=== PATIENT | male | born 1995 | race Caucasian/White ===

== ENCOUNTER 2019-09-13 07:07 | Emergency (ER) | payer OTHER ==
--- NOTE | 2019-09-13 07:28 | EDM.PDOC ---
ED HPI GENERAL MEDICAL PROBLEM - General Chief Complaint: General Stated Complaint: TOOTH PAIN Time Seen by Provider: 09/13/19 07:20 Source of Information: Reports: Patient History Limitations: Reports: No Limitations - History of Present Illness INITIAL COMMENTS - FREE TEXT/NARRATIVE: This is a 24-year-old male who presents the emergency room with a chief complaint of tooth pain. Patient states his tooth. The patient states the pain is been going for day and a half. Patient denies chills and fever. Patient is allergic to amoxicillin. Has no other problems. Onset: Today Duration: Day(s):, Getting Worse Severity: Mild Improves with: Reports: None Worsens with: Reports: None Associated Symptoms: Reports: No Other Symptoms Right tooth Pain Score (Numeric/FACES): 10 - Related Data Allergies Allergy/AdvReac Type Severity Reaction Status Date / Time amoxicillin Allergy Hives Verified 09/13/19 07:24 Home Meds: Home Meds Doxycycline [Vibramycin] 100 mg PO BID #14 cap 09/13/19 [Rx] Ibuprofen [Motrin] 600 mg PO Q8H PRN #21 tab 09/13/19 [Rx] ED ROS GENERAL - Review of Systems Review Of Systems: See Below Constitutional: Reports: No Symptoms HEENT: Reports: No Symptoms, Other (Pain in tooth ) Respiratory: Reports: No Symptoms Cardiovascular: Reports: No Symptoms Endocrine: Reports: No Symptoms GI/Abdominal: Reports: No Symptoms : Reports: No Symptoms Skin: Reports: No Symptoms Neurological: Reports: No Symptoms Psychiatric: Reports: No Symptoms Hematologic/Lymphatic: Reports: No Symptoms Immunologic: Reports: No Symptoms ED EXAM, GENERAL - Physical Exam Exam: See Below Exam Limited By: Altered Mental Status General Appearance: Alert, WD/WN, No Apparent Distress Eye Exam: Bilateral Eye: Normal Fundi, Normal Inspection Ears: Normal External Exam, Normal Canal, Normal TMs Ear Exam: Bilateral Ear: Auricle Normal, Canal Normal Nose: Normal Inspection, Normal Mucosa Throat/Mouth: Normal Inspection, Normal Lips. No: Normal Teeth (6. Tooth number is infected) Head: Atraumatic, Normocephalic Neck: Normal Inspection Respiratory/Chest: No Respiratory Distress Cardiovascular: Normal Peripheral Pulses, Regular Rate, Rhythm GI/Abdominal: Normal Bowel Sounds, Soft, No Organomegaly, No Distention (Male) Exam: Deferred Rectal (Males) Exam: Deferred Back Exam: Normal Inspection, Full Range of Motion Extremities: Normal Inspection, Normal Range of Motion Neurological: Alert, Oriented, CN II-XII Intact Psychiatric: Normal Affect, Normal Mood Skin Exam: Warm, Dry, Intact Lymphatic: No Adenopathy Course - Vital Signs Text/Narrative:: This 24-year-old male presents to the emergency room with a chief complaint of right upper tooth pain. Patient states his pain been hurting for multiple days. Exam #6 tooth is painful no evidence of severe abscess. Patient will be placed on antibiotics and pain medicine. Anti-inflammatories patient instructed to follow-up with a dentist. Use Auralgan for pain also Last Recorded V/S: Last Vital Signs Temp 97.4 F 09/13/19 07:24 Pulse 112 H 09/13/19 07:24 Resp 18 09/13/19 07:24 BP 122/86 09/13/19 07:24 Pulse Ox 97 09/13/19 07:24 - Orders/Labs/Meds Meds: Medications Discontinued Medications Generic Name Dose Route Start Last Admin Trade Name Freq PRN Reason Stop Dose Admin Doxycycline Hyclate 200 mg 09/13/19 07:47 Vibramycin PO 09/13/19 07:48 ONETIME ONE Ibuprofen 600 mg 09/13/19 07:49 Motrin PO 09/13/19 07:50 ONETIME ONE Departure - Departure Time of Disposition: 07:54 Disposition: DC/Tfer to Hospice - Home 50 Condition: Good Clinical Impression: Dental infection - Discharge Information Prescriptions: Doxycycline [Vibramycin] 100 mg PO BID #14 cap Ibuprofen [Motrin] 600 mg PO Q8H PRN #21 tab PRN Reason: Pain (Mild 1-3) Referrals: PCP,None [Primary Care Provider] - Forms: ED Department Discharge Additional Instructions: Patient needs to follow-up with dentist. Use Auralgan topical oral solution for pain found most pharmacies Take your medication as prescribed. Sepsis Event Note - Focused Exam Vital Signs: Vital Signs Temp Pulse Resp BP Pulse Ox 09/13/19 07:24 97.4 F 112 H 18 122/86 97 Date Exam was Performed: 09/13/19 Time Exam was Performed: 07:54
[2019-09-13] MEDS ORDERED: Doxycycline 100 MG Cap PO ONE (07:47)
[2019-09-13] MEDS ORDERED: Ibuprofen 600 MG Tab PO ONE (07:49)
[2019-09-13] MEDS ORDERED: Lidocaine 2% Viscous Solution 15 ML Cup PO ONE (07:53)
[2019-09-13] MEDS ORDERED: Benzocaine 20% Topical Spray UD MUCMEM ONE (07:53)
== END 2019-09-13 08:09 | disposition home or self-care (01) ==
LOC: MW.ED 07:07
DX: K04.7 Periapical abscess without sinus (principal); Z88.1 Allergy status to other antibiotic agents
CPT/HCPCS: 99282; A9270

== ENCOUNTER 2019-11-22 04:31 | Emergency (ER) | payer SELFPAY ==
[2019-11-22] MEDS ORDERED: Sodium Chloride 0.9% 1,000 ML IV ONE (04:40)
[2019-11-22] MEDS ORDERED: Bacitracin Oint 1 GM U/D Packet TOP ONE (04:41)
--- NOTE | 2019-11-22 04:45 | EDM.PDOC ---
ED HPI GENERAL MEDICAL PROBLEM - General Stated Complaint: SEIZURE Time Seen by Provider: 11/22/19 04:38 - History of Present Illness INITIAL COMMENTS - FREE TEXT/NARRATIVE: History of present illness: [Patient presents with alcohol intoxication patient was drinking tonight and became very intoxicated however he also had a witnessed seizure according to the people who called 911. EMS arrived and found him postictal and intoxicated. He also somehow injured his wrist and has a 1 cm superficial laceration there. This was not apparently intentional. He has no prior history of seizures. Patient apparently struck his head after the seizure but not prior he is now arousable but slurring his words and appears to be severely intoxicated. He denies any other medical problems] Review of systems: As per history of present illness and below otherwise all systems reviewed and negative. Past medical history: As per history of present illness and as reviewed below otherwise noncontributory. Surgical history: As per history of present illness and as reviewed below otherwise noncontributory. Social history: No reported history of drug or alcohol abuse. Family history: As per history of present illness and as reviewed below otherwise noncontributory. Physical exam: HEENT: Atraumatic, normocephalic, pupils reactive, negative for conjunctival pallor or scleral icterus, mucous membranes moist, throat clear, neck supple, nontender, trachea midline. Lungs: Clear to auscultation, breath sounds equal bilaterally, chest nontender. Heart: S1S2, regular, negative for clicks, rubs, or JVD. Abdomen: Soft, nondistended, nontender. Negative for masses or hepatosplenomegaly. Negative for costovertebral tenderness. Pelvis: Stable nontender. Genitourinary: Deferred. Rectal: Deferred. Extremities: Atraumatic, negative for cords or calf pain. Neurovascular unremarkable. There are small 1 cm lacerations to both the left wrists and right palm that are superficial and bleeding is controlled Neuro: Awake, alert, intoxicated. Cranial nerves II through XII unremarkable. Cerebellum unremarkable. Motor and sensory unremarkable throughout. Exam nonfocal. Diagnostics: [] Therapeutics: [] Impression: Alcohol intoxication, seizure. [] Plan: I will obtain a CBC chemistry alcohol level and a CT of the brain due to the seizure that occurred that is supposedly a new onset seizure. [] Definitive disposition and diagnosis as appropriate pending reevaluation and review of above. - Related Data Allergies Allergy/AdvReac Type Severity Reaction Status Date / Time amoxicillin Allergy Hives Verified 11/22/19 04:58 Home Meds: Home Meds . [No Known Home Meds] 11/22/19 [History] Past Medical History HEENT History: Reports: None Cardiovascular History: Reports: None Respiratory History: Reports: None Gastrointestinal History: Reports: None Genitourinary History: Reports: None Musculoskeletal History: Reports: None Neurological History: Reports: None Psychiatric History: Reports: None Endocrine/Metabolic History: Reports: None Hematologic History: Reports: None Immunologic History: Reports: None Oncologic (Cancer) History: Reports: None Dermatologic History: Reports: None - Infectious Disease History Infectious Disease History: Reports: None - Past Surgical History Head Surgeries/Procedures: Reports: None HEENT Surgical History: Reports: None Cardiovascular Surgical History: Reports: None Respiratory Surgical History: Reports: None GI Surgical History: Reports: None Male Surgical History: Reports: None Endocrine Surgical History: Reports: None Neurological Surgical History: Reports: None Musculoskeletal Surgical History: Reports: Other (See Below) Oncologic Surgical History: Reports: None Dermatological Surgical History: Reports: None Social & Family History - Family History Family Medical History: Noncontributory - Caffeine Use Caffeine Use: Reports: Energy Drinks ED ROS GENERAL - Review of Systems Review Of Systems: See Below ED EXAM, GENERAL - Physical Exam Exam: See Below EKG INTERPRETATION EKG Interpretation Comments: EKG is a normal sinus rhythm rate of 101 bpm sinus tachycardia normal EKG otherwise no ischemia normal axis read and interpreted by me Course - Vital Signs Text/Narrative:: Your: Lack repair a 1.5 cm laceration to the left wrist was anesthetized with 10 mils of 1% lidocaine it was explored visually and digitally no foreign bodies were noted no tendon injury was noted it was then closed with 4 4-0 simple interrupted sutures nylon no complications tolerated well CT brain is negative for any acute abnormalities read by radiology. Discharge home with a sober ride seizure precautions follow-up with neurology and primary care Last Recorded V/S: Last Vital Signs Temp 36.7 C 11/22/19 04:52 Pulse 87 11/22/19 05:55 Resp 16 11/22/19 05:55 BP 144/66 H 11/22/19 05:55 Pulse Ox 95 11/22/19 05:55 - Orders/Labs/Meds Orders: Active Orders 24 hr Category Date Time Status EKG Documentation Completion [RC] STAT Care 11/22/19 04:39 Active Labs: Laboratory Tests 11/22/19 11/22/19 11/22/19 Range/Units 04:40 04:40 04:40 WBC 6.89 (4.0-11.0) K/uL RBC 4.71 (4.50-5.90) M/uL Hgb 14.4 (13.0-17.0) g/dL Hct 41.2 (38.0-50.0) % MCV 87.5 (80.0-98.0) fL MCH 30.6 (27.0-32.0) pg MCHC 35.0 (31.0-37.0) g/dL RDW Std Deviation 40.7 (28.0-62.0) fl RDW Coeff of Janny 13 (11.0-15.0) % Plt Count 259 (150-400) K/uL MPV 11.70 (7.40-12.00) fL Neut % (Auto) 59.4 (48.0-80.0) % Lymph % (Auto) 29.8 (16.0-40.0) % [place] % (Auto) 9.0 (0.0-15.0) % Eos % (Auto) 1.2 (0.0-7.0) % Baso % (Auto) 0.6 (0.0-1.5) % Neut # (Auto) 4.1 (1.4-5.7) K/uL Lymph # (Auto) 2.1 (0.6-2.4) K/uL [place] # (Auto) 0.6 (0.0-0.8) K/uL Eos # (Auto) 0.1 (0.0-0.7) K/uL Baso # (Auto) 0.0 (0.0-0.1) K/uL Nucleated RBC % 0.0 /100WBC Nucleated RBCs # 0 K/uL Sodium 146 (136-148) mmol/L Potassium 3.8 (3.5-5.1) mmol/L Chloride 110 H (98-107) mmol/L Carbon Dioxide 20.6 L (21.0-32.0) mmol/L BUN 7 (7.0-18.0) mg/dL Creatinine 1.2 (0.8-1.3) mg/dL Est Cr Clr Drug Dosing 99.70 mL/min Estimated GFR (MDRD) > 60.0 ml/min Glucose 97 (74-106) mg/dL Calcium 8.1 L (8.5-10.1) mg/dL Total Bilirubin 0.5 (0.2-1.0) mg/dL AST 34 (15-37) IU/L ALT 32 (14-63) IU/L Alkaline Phosphatase 62 (46-116) U/L Total Protein 6.6 (6.4-8.2) g/dL Albumin 4.0 (3.4-5.0) g/dL Globulin 2.6 (2.6-4.0) g/dL Albumin/Globulin Ratio 1.5 (0.9-1.6) Urine Opiates Screen NEGATIVE (NEGATIVE) Ur Oxycodone Screen NEGATIVE (NEGATIVE) Urine Methadone Screen NEGATIVE (NEGATIVE) Ur Barbiturates Screen NEGATIVE (NEGATIVE) Ur Phencyclidine Scrn NEGATIVE (NEGATIVE) Ur Amphetamine Screen NEGATIVE (NEGATIVE) U Methamphetamines Scrn NEGATIVE (NEGATIVE) U Benzodiazepines Scrn NEGATIVE (NEGATIVE) U Cocaine Metab Screen NEGATIVE (NEGATIVE) U Marijuana (THC) Screen NEGATIVE (NEGATIVE) Ethyl Alcohol 228 mg/dL Meds: Medications Discontinued Medications Generic Name Dose Route Start Last Admin Trade Name Freq PRN Reason Stop Dose Admin Bacitracin 1 dose 11/22/19 04:41 11/22/19 05:07 Bacitracin Oint 1 Gm TOP 11/22/19 04:42 1 dose ONETIME ONE Administration Sodium Chloride 1,000 mls @ 999 mls/hr 11/22/19 04:40 11/22/19 05:04 Normal Saline IV 11/22/19 05:40 999 mls/hr .Bolus ONE Administration Lidocaine HCl 10 ml 11/22/19 04:58 11/22/19 05:07 Xylocaine-Mpf 1% INJECT 11/22/19 04:59 10 ml ONETIME ONE Administration Departure - Departure Time of Disposition: 06:33 Disposition: Home, Self-Care 01 Condition: Good Clinical Impression: Alcoholic intoxication, Seizure - Discharge Information *PRESCRIPTION DRUG MONITORING PROGRAM REVIEWED*: Not Applicable *COPY OF PRESCRIPTION DRUG MONITORING REPORT IN PATIENT JACE: Not Applicable Instructions: Binge-Drinking Information, Adult, Seizure, Adult, [id number] Referrals: PCP,None [Primary Care Provider] - Additional Instructions: The following information is given to patients seen in the emergency department who are being discharged to home. This information is to outline your options for follow-up care. We provide all patients seen in our emergency department with a follow-up referral. The need for follow-up, as well as the timing and circumstances, are variable depending upon the specifics of your emergency department visit. If you don't have a primary care physician on staff, we will provide you with a referral. We always advise you to contact your personal physician following an emergency department visit to inform them of the circumstance of the visit and for follow-up with them and/or the need for any referrals to a consulting specialist. The emergency department will also refer you to a specialist when appropriate. This referral assures that you have the opportunity for follow-up care with a specialist. All of these measure are taken in an effort to provide you with optimal care, which includes your follow-up. Under all circumstances we always encourage you to contact your private physician who remains a resource for coordinating your care. When calling for follow-up care, please make the office aware that this follow-up is from your recent emergency room visit. If for any reason you are refused follow-up, please contact the [facility] Emergency Department at and asked to speak to the emergency department charge nurse. [facility] - Primary Care [address] [place] [id number] [id number] [facility] - Neurology Professional Building [address] [place] [address], [address] [place] [address] Sepsis Event Note - Focused Exam Vital Signs: Vital Signs Temp Pulse Resp BP Pulse Ox 11/22/19 05:55 87 16 144/66 H 95 11/22/19 04:52 36.7 C 112 H 16 153/91 H 93 L Date Exam was Performed: 11/22/19 Time Exam was Performed: 06:32 - My Orders Last 24 Hours: My Active Orders 11/22/19 04:39 EKG Documentation Completion [RC] STAT - Assessment/Plan Last 24 Hours: My Active Orders 11/22/19 04:39 EKG Documentation Completion [RC] STAT
[2019-11-22 05:08] LABS: BLOOD UREA NITROGEN,BUN 7 mg/dL (7.0-18.0); CARBON DIOXIDE,CO2 20.6 mmol/L (21.0-32.0); CHLORIDE,CL 110 mmol/L (98-107); GLUCOSE RANDOM 97 mg/dL (74-106); POTASSIUM,K 3.8 mmol/L (3.5-5.1); SODIUM,NA 146 mmol/L (136-148)
--- NOTE | 2019-11-22 06:23 | CT ---
INDICATION: Seizure TECHNIQUE: CT head without contrast. COMPARISON: None. FINDINGS: CSF spaces: Within normal limits for age. Brain parenchyma: The booker-white differentiation is normal. No sign of mass, hemorrhage, or midline shift. Skull base and calvarium: Trace mucosal thickening paranasal sinuses proved the visualized orbits are grossly unremarkable. No skull fractures. IMPRESSION: Unremarkable noncontrast head CT. Please note that all CT scans at this facility use dose modulation, iterative reconstruction, and/or weight-based dosing when appropriate to reduce radiation dose to as low as reasonably achievable. Dictated by Jesus Knowles MD @ Nov 22 2019 6:19AM Signed by Dr. Jesus Knowles @ Nov 22 2019 6:22AM
== END 2019-11-22 07:11 | disposition home or self-care (01) ==
LOC: MW.ED 04:31
DX: S61.512A Laceration without foreign body of left wrist, initial encounter (principal); S61.411A Laceration without foreign body of right hand, initial encounter; R56.9 Unspecified convulsions; F10.129 Alcohol abuse with intoxication, unspecified; Y90.7 Blood alcohol level of 200-239 mg/100 ml; W45.8XXA Other foreign body or object entering through skin, initial encounter
CPT/HCPCS: 12001; 36415; 70450; 80053; 80305; 80307; 85025; 93005; 99285; J2001; J7030; 99282